=== PATIENT | female | born 1970 | race Caucasian/White ===

== ENCOUNTER 2020-08-16 09:23 | Outpatient (CLI) | payer BC ==
--- NOTE | 2020-08-16 10:48 | MRI ---
MRI of thelumbar spine with and without contrast: 08/16/2020 COMPARISON:None available HISTORY:Back surgery 5 years ago, left foot drop, increasing numbness in the right thigh, radiculopat hy TECHNIQUE: Multiplanar multisequence MR imaging of thelumbar spine with and without contrast Findings:The sagittal STIR imaging demonstrates no focal area of osseous marrow edema. On the basis of 5 lumbar type vertebral bodies, conus medullaris terminates at L1-2. T12-L1: Intervertebral disc height and signal intensity is within normal limits. Mild bilateral facet hypertrophy with no significant central canal or neural foraminal stenosis. There is a benign hemangioma within the T12 vertebral body. L1-2: Mild bilateral facet hypertrophy. Intervertebral disc height and signal intensity within normal limits. No central canal or neural foraminal stenosis. L2-3: Mild bilateral facet hypertrophy. Mild disc space narrowing with disc desiccation. Minimal disc bulge. No significant central canal or neural foraminal stenosis. L3-4: There is disc space narrowing with disc desiccation and mild disc bulge. There is a small right paracentral disc protrusion with minimal right lateral recess stenosis. No significant neural foraminal stenosis. L4-5: There is disc space narrowing with disc desiccation and mild disc bulge. Mild bilateral facet h ypertrophy. Vacuum disc formation noted. No significant central canal stenosis. Minimal bilateral neural foraminal stenosis. L5-S1: There is disc space narrowing with disc desiccation and mild disc bulge. There is mild bilater al facet hypertrophy, right greater than left. There is a mild/moderate degree of bilateral neural foraminal stenosis. No significant central canal stenosis. The imaged retroperitoneal structures demonstrate no acute findings. Postcontrast imaging demonstrates no abnormal enhancement involving the contents of the thecal sac. N o abnormal enhancement of the intervertebral discs with image osseous structures are noted. Linear precontrast T1 hyperintensity is seen along the dorsal aspect of the proximal portion of the cauda eq uina suggesting a fatty filum terminale. IMPRESSION:Relatively mild degenerative changes at multiple levels within the lumbar spine as describ ed above. Most significant findings are noted at the L4-5 and L5-S1 levels.
== END 2020-08-16 09:24 | disposition home or self-care (01) ==
LOC: TBSIIMAG 09:23
PROVIDERS: ATTEND Neurological Surgery
DX: M47.26 Other spondylosis with radiculopathy, lumbar region (principal); M48.061 Spinal stenosis, lumbar region without neurogenic claudication; M51.17 Intervertebral disc disorders with radiculopathy, lumbosacral region
CPT/HCPCS: 72158